=== PATIENT | female | born 1970 | race Caucasian/White ===

== ENCOUNTER 2017-06-28 05:56 | Inpatient (IN) | payer SELFPAY ==
[~2017-06-28] VITALS: Ht 165.1 cm; Wt 124.6 kg
[2017-06-28 07:45] LABS: CONDITION Y; Mean Corpuscular Hemoglobin 29.1 pg (28.0-32.0); Mean Corpuscular Hgb Conc. 33.7 g/dL (32.0-36.0); Mean Corpuscular Volume 86.5 fL (80.0-100.0); Mean Platelet Volume 8.1 fL (7.4-10.4); Platelet Count (auto) 474 10^3/uL (140-450); Red Cell Distribution Width 13.6 % (11.6-16.0); SUSPECT SEE PRINTOUT; White Blood Cell 19.4 10^3/uL (4.4-10.8)
[2017-06-28 07:49] LABS: Metamyelocytes % 0; Myelocytes % 0; Promyelocytes % 0; Reactive Lymphocytes 0
[2017-06-28] MEDS ORDERED: SODIUM CHLORIDE 0.9% 1,000 ML IVB ONE (07:59)
[2017-06-28] MEDS ORDERED: NALBUPHINE HCL 10 MG/1ml INJECTION IV ONE (08:00)
[2017-06-28] MEDS ORDERED: PROMETHAZINE HCL 25 MG/ML 1ML IV PRN (08:00)
[2017-06-28 08:01] LABS: Albumin 3.6 g/dL (3.4-5.0); Calcium 9.2 mg/dL (8.5-10.1); Potassium 3.5 mmol/L (3.5-5.1)
[2017-06-28 08:04] LABS: BUN/Creatinine Ratio 14.2; Bilirubin, Total 0.6 mg/dL (0.2-1.0); Total Protein 8.3 g/dL (6.4-8.2)
[2017-06-28 08:06] LABS: Lactic Acid w/Reflex 4.7 mmol/L (0.4-2.0)
[2017-06-28 08:10] LABS: REFLEX LACTIC ACID YES OR NO YES
[2017-06-28] MEDS ORDERED: GASTROGRAFIN 30 ML SOL ONE (08:50)
[2017-06-28] MEDS ORDERED: IOHEXOL 300 MG/ML 100ML BOTTLE IJ ONE (08:50)
[2017-06-28 08:53] LABS: Platelet Estimate Increased
[2017-06-28 08:54] LABS: Hematocrit 45.4 % (36.0-46.0); Hemoglobin 15.3 g/dL (12.2-16.2)
[2017-06-28 10:19] LABS: Urine Bilirubin Negative (Negative); Urine Blood Negative /uL (Negative); Urine Color Yellow (Yellow); Urine Mucus FEW (None Seen); Urine Nitrite Negative (Negative); Urine RBC 5 /hpf (0 - 4); Urine Squamous Epithelial Cell FEW /hpf (<5); Urine Urobilinogen Normal (Negative); Urine pH 7.5 (5.0-8.0)
[2017-06-28 10:22] LABS: Urine Glucose 1+ mg/dL (Normal); Urine Ketone 1+ (Negative)
[2017-06-28] MEDS ORDERED: SODIUM CHLORIDE 0.9% 1,000 ML IV ONE (11:11)
[2017-06-28] MEDS ORDERED: cefTRIAXone 1GM/50ML D5W 50 ML IV ONE (11:15)
[2017-06-28] MEDS ORDERED: metroNIDAZOLE 500MG/100ML 100 ML IV ONE (11:15)
[2017-06-28] MEDS ORDERED: SODIUM CHLORIDE 0.9% 3,000 ML IV ONE (11:15)
[2017-06-28] MEDS ORDERED: DEXTROSE (50%) 50ML SYRG IV PRN (13:15)
[2017-06-28] MEDS ORDERED: cloNIDine HCL 0.1 MG TAB PO PRN ×2 (13:15→20:30)
[2017-06-28] MEDS ORDERED: ACETAMINOPHEN 325 MG TAB PO PRN (13:30)
[2017-06-28] MEDS ORDERED: DOCUSATE SOD 100 MG CAP PO PRN (13:30)
[2017-06-28] MEDS: HYDROmorphone HCL 2 MG/ML VL IV PRN ×3 (13:44→23:09)
[2017-06-28] MEDS: ONDANSETRON HCL 4 MG/2 ML VIAL IV PRN ×2 (13:45→17:54)
[2017-06-28] MEDS: amLODIPine BESYLATE 5 MG TAB PO SCH (13:50)
[2017-06-28] MEDS: FAMOTIDINE 20 MG TAB PO SCH ×2 (13:50→23:08)
[2017-06-28] MEDS: SODIUM CHLORIDE 0.9% 1,000 ML IV SCH ×2 (15:09→22:35)
[2017-06-28] MEDS ORDERED: METF-370 PO (15:16)
[2017-06-28] MEDS ORDERED: OXYC30TA50 PO (15:16)
[2017-06-28] MEDS ORDERED: AML5T PO (15:16)
[2017-06-28 16:51] VITALS: BP 180/113
[2017-06-28] MEDS: InsuLIN REG 1unit/0.01ml Soln (100units/ml) SC SCH ×2 (17:00→23:09)
[2017-06-28] MEDS: ACCU-CHEK COMFORT CURVE STRIP VI SCH ×2 (17:25→22:00)
[2017-06-28] MEDS ORDERED: VANCOMYCIN PER PHARMACY 0 MG IV SCH (20:30)
[2017-06-28] MEDS ORDERED: VANCOMYCIN 1GM/250ML D5W 250 ML IV ONE (21:00)
[2017-06-28 22:00] VITALS: BP 152/101
[2017-06-28] MEDS: metroNIDAZOLE 500MG/100ML 100 ML IV SCH (23:07)
[2017-06-28] MEDS: TEMAZEPAM 15 MG CAP PO PRN (23:10)
[2017-06-29] MEDS: HYDROmorphone HCL 2 MG/ML VL IV PRN ×5 (04:05→21:34)
[2017-06-29] MEDS: ONDANSETRON HCL 4 MG/2 ML VIAL IV PRN ×5 (04:17→21:51)
[2017-06-29 05:00] VITALS: BP 164/98
[2017-06-29 05:47] LABS: Basophils # (auto) 0 uL; Basophils % (auto) 0.1 % (0.0-2.0); CONDITION Y; Eosinophils # (auto) 0.1 uL; Eosinophils % (auto) 0.8 % (0.0-7.0); Hematocrit 40.8 % (36.0-46.0); Hemoglobin 13.6 g/dL (12.2-16.2); Lymphocytes # (auto) 2.4 uL; Lymphocytes % (auto) 18.6 % (10.0-50.0); Mean Corpuscular Hemoglobin 28.5 pg (28.0-32.0); Mean Corpuscular Hgb Conc. 33.4 g/dL (32.0-36.0); Mean Corpuscular Volume 85.5 fL (80.0-100.0); Mean Platelet Volume 7.8 fL (7.4-10.4); Monocytes # (auto) 0.7 uL; Monocytes % (auto) 5.4 % (0.0-12.0); Neutrophils # (auto) 9.7 uL; Neutrophils % (auto) 75.1 % (37.0-80.0); Platelet Count (auto) 375 10^3/uL (140-450); Red Cell Distribution Width 14.2 % (11.6-16.0); White Blood Cell 12.9 10^3/uL (4.4-10.8)
[2017-06-29 06:12] LABS: Albumin 3.2 g/dL (3.4-5.0); Calcium 7.9 mg/dL (8.5-10.1); Potassium 3.3 mmol/L (3.5-5.1)
[2017-06-29 06:14] LABS: Bilirubin, Total 0.4 mg/dL (0.2-1.0)
[2017-06-29] MEDS: metroNIDAZOLE 500MG/100ML 100 ML IV SCH ×3 (06:38→21:51)
[2017-06-29] MEDS: ACCU-CHEK COMFORT CURVE STRIP VI SCH ×4 (06:39→22:03)
[2017-06-29] MEDS: SODIUM CHLORIDE 0.9% 1,000 ML IV SCH ×3 (06:39→23:35)
[2017-06-29] MEDS: InsuLIN REG 1unit/0.01ml Soln (100units/ml) SC SCH ×4 (06:39→22:00)
[2017-06-29] MEDS: cefTRIAXone 1GM/50ML D5W 50 ML IV SCH (08:24)
[2017-06-29 09:00] VITALS: BP 158/108
[2017-06-29] MEDS: DIPHENOXYLATE W/ATROPINE 2.5 MG TAB PO PRN ×2 (09:10→11:15)
[2017-06-29] MEDS ORDERED: POTASSIUM CHL 10 Meq TABLET PO ONE (09:30)
[2017-06-29] MEDS: MULTIPLE VITAMIN TAB PO SCH ×2 (09:38→09:48)
[2017-06-29] MEDS: FAMOTIDINE 20 MG TAB PO SCH ×3 (09:38→21:51)
[2017-06-29] MEDS: amLODIPine BESYLATE 5 MG TAB PO SCH ×2 (09:39→11:15)
[2017-06-29] MEDS: VANCOMYCIN 1,250 MG in D5W 5% 250 ML IV SCH ×2 (11:35→23:08)
[2017-06-29] MEDS: Boost Glucose Control 8 Ounces PO SCH ×2 (12:00→18:00)
[2017-06-29 13:00] VITALS: BP 164/106
[2017-06-29 17:00] VITALS: BP 159/97
[2017-06-29] MEDS: TEMAZEPAM 15 MG CAP PO PRN (21:51)
[2017-06-29 22:54] VITALS: BP 148/92
[2017-06-30] MEDS: HYDROmorphone HCL 2 MG/ML VL IV PRN ×4 (01:38→13:12)
[2017-06-30] MEDS: ONDANSETRON HCL 4 MG/2 ML VIAL IV PRN ×3 (01:44→13:12)
[2017-06-30] MEDS: DIPHENOXYLATE W/ATROPINE 2.5 MG TAB PO PRN (05:22)
[2017-06-30 05:31] VITALS: BP 124/95
[2017-06-30] MEDS: metroNIDAZOLE 500MG/100ML 100 ML IV SCH ×2 (06:10→14:00)
[2017-06-30] MEDS: InsuLIN REG 1unit/0.01ml Soln (100units/ml) SC SCH ×2 (06:19→11:30)
[2017-06-30] MEDS: ACCU-CHEK COMFORT CURVE STRIP VI SCH ×2 (06:19→11:30)
[2017-06-30] MEDS: SODIUM CHLORIDE 0.9% 1,000 ML IV SCH (07:57)
[2017-06-30] MEDS: Boost Glucose Control 8 Ounces PO SCH ×2 (08:00→12:00)
[2017-06-30 08:51] VITALS: BP 163/97
[2017-06-30] MEDS: MULTIPLE VITAMIN TAB PO SCH (10:00)
[2017-06-30] MEDS ORDERED: POTASSIUM CHLORIDE 20 MEQ, LIDOCAINE 1% (LOCAL ANESTH.) 2 ML in SODIUM CHL 0.9% 100 ML IV ONE (10:15)
[2017-06-30] MEDS: cefTRIAXone 1GM/50ML D5W 50 ML IV SCH (10:19)
[2017-06-30] MEDS: amLODIPine BESYLATE 5 MG TAB PO SCH (10:20)
[2017-06-30] MEDS: FAMOTIDINE 20 MG TAB PO SCH (10:20)
[2017-06-30 11:00] LABS: Basophils # (auto) 0 uL; Basophils % (auto) 0.1 % (0.0-2.0); CONDITION Y; Eosinophils # (auto) 0.1 uL; Eosinophils % (auto) 0.4 % (0.0-7.0); Hematocrit 40.5 % (36.0-46.0); Hemoglobin 13.9 g/dL (12.2-16.2); Lymphocytes # (auto) 1.7 uL; Lymphocytes % (auto) 11.6 % (10.0-50.0); Mean Corpuscular Hemoglobin 29.2 pg (28.0-32.0); Mean Corpuscular Hgb Conc. 34.3 g/dL (32.0-36.0); Mean Corpuscular Volume 85.3 fL (80.0-100.0); Mean Platelet Volume 7.6 fL (7.4-10.4); Monocytes # (auto) 0.6 uL; Monocytes % (auto) 3.9 % (0.0-12.0); Neutrophils # (auto) 12.6 uL; Platelet Count (auto) 345 10^3/uL (140-450); Red Cell Distribution Width 13.6 % (11.6-16.0); White Blood Cell 15.1 10^3/uL (4.4-10.8)
[2017-06-30] MEDS: VANCOMYCIN 1,250 MG in D5W 5% 250 ML IV SCH (11:00)
[2017-06-30 11:26] LABS: Albumin 3.3 g/dL (3.4-5.0); BUN/Creatinine Ratio 13.5; Bilirubin, Total 0.4 mg/dL (0.2-1.0); Calcium 8.4 mg/dL (8.5-10.1); Potassium 3.1 mmol/L (3.5-5.1); Total Protein 7.2 g/dL (6.4-8.2)
[2017-06-30 11:45] VITALS: BP 150/58
== END 2017-06-30 16:05 | disposition left against medical advice (07) | DRG 872 ==
LOC: ER 06:02 → EDSEX 06:02 → OVERFLOW 06:03 → EAST 14:32 → CENTRAL 14:50
PROVIDERS: ADMIT Internal Medicine; ATTEND Internal Medicine
DX: A41.9 Sepsis, unspecified organism (principal); E44.0 Moderate protein-calorie malnutrition; N39.0 Urinary tract infection, site not specified; E10.21 Type 1 diabetes mellitus with diabetic nephropathy; E10.22 Type 1 diabetes mellitus with diabetic chronic kidney disease; E66.01 Morbid (severe) obesity due to excess calories; E86.0 Dehydration; I12.9 Hypertensive chronic kidney disease with stage 1 through stage 4 chronic kidney disease, or unspecified chronic kidney disease; M79.7 Fibromyalgia; K52.9 Noninfective gastroenteritis and colitis, unspecified; N18.2 Chronic kidney disease, stage 2 (mild); Z79.4 Long term (current) use of insulin; Z83.3 Family history of diabetes mellitus; K76.0 Fatty (change of) liver, not elsewhere classified; R16.0 Hepatomegaly, not elsewhere classified; Z88.5 Allergy status to narcotic agent; Z71.89 Other specified counseling; A05.9 Bacterial foodborne intoxication, unspecified; Z53.21 Procedure and treatment not carried out due to patient leaving prior to being seen by health care provider
CPT/HCPCS: 36415; 71020; 74177; 80053; 80307; 81001; 82150; 82962; 83036; 83605; 83690; 83735; 84443; 84702; 85007; 85025; 85027; 87040; 87045; 87086; 87088; 87186; 87493; 87899; 93005; 96361; 96365; 96368; 96375; J0696; J1815; J2001; J2405; J3490; J7060

== ENCOUNTER 2017-07-01 13:51 | Inpatient (IN) | payer SELFPAY ==
[~2017-07-01] VITALS: Ht 162.6 cm; Wt 123.2 kg
[~2017-07-01 13:51] MED LIST: AML5T PO; METF-370 PO; OXYC30TA50 PO
[2017-07-01 15:15] LABS: Albumin 3.8 g/dL (3.4-5.0); BUN/Creatinine Ratio 17.3; Bilirubin, Total 0.9 mg/dL (0.2-1.0); Calcium 9.3 mg/dL (8.5-10.1); Potassium 3.2 mmol/L (3.5-5.1); Total Protein 8.6 g/dL (6.4-8.2)
[2017-07-01] MEDS ORDERED: SODIUM CHLORIDE 0.9% 1,000 ML IV ONE (19:11)
[2017-07-01] MEDS ORDERED: ONDANSETRON HCL 4 MG/2 ML VIAL IV ONE (19:15)
[2017-07-01 19:51] LABS: Basophils # (auto) 0 uL; Basophils % (auto) 0.2 % (0.0-2.0); CONDITION Y; Eosinophils # (auto) 0 uL; Eosinophils % (auto) 0.2 % (0.0-7.0); Hematocrit 46.3 % (36.0-46.0); Hemoglobin 15.4 g/dL (12.2-16.2); Lymphocytes # (auto) 2.8 uL; Mean Corpuscular Hemoglobin 28.7 pg (28.0-32.0); Mean Corpuscular Hgb Conc. 33.3 g/dL (32.0-36.0); Mean Corpuscular Volume 86.2 fL (80.0-100.0); Mean Platelet Volume 8.5 fL (7.4-10.4); Monocytes # (auto) 0.8 uL; Monocytes % (auto) 3.9 % (0.0-12.0); Neutrophils # (auto) 16.3 uL; Neutrophils % (auto) 81.7 % (37.0-80.0); Platelet Count (auto) 484 10^3/uL (140-450); Red Cell Distribution Width 13.3 % (11.6-16.0); White Blood Cell 19.9 10^3/uL (4.4-10.8)
[2017-07-01] MEDS ORDERED: HYDROmorphone HCL 2 MG/ML VL IV ONE (20:00)
[2017-07-01 21:20] LABS: Urine Bilirubin Negative (Negative); Urine Blood TRACE /uL (Negative); Urine Color Yellow (Yellow); Urine Glucose Normal (Normal); Urine Ketone TRACE (Negative); Urine Mucus MODERATE (None Seen); Urine Nitrite Negative (Negative); Urine RBC 7 /hpf (0 - 4); Urine Squamous Epithelial Cell MOD /hpf (<5); Urine Urobilinogen Normal (Negative)
[2017-07-01] MEDS ORDERED: cefTRIAXone 1GM/50ML D5W 50 ML IV ONE (22:00)
[2017-07-01] MEDS ORDERED: LEVOFLOXACIN 500MG 100 ML IV ONE (23:30)
[2017-07-01] MEDS ORDERED: metroNIDAZOLE 500MG/100ML 100 ML IV ONE (23:30)
[2017-07-01] MEDS ORDERED: ACETAMINOPHEN 325 MG TAB PO PRN (23:30)
[2017-07-01] MEDS ORDERED: PANTOPRAZOLE SODIUM 40 MG/10 ML VIAL IV ONE (23:30)
[2017-07-01] MEDS ORDERED: HYDROcodone-ACET 5/325MG TAB PO PRN (23:30)
[2017-07-01] MEDS ORDERED: POTASSIUM CHL 20 Meq TABLET PO ONE (23:30)
[2017-07-01] MEDS ORDERED: MORPHINE SULF INJ 2 MG/ML SYRINGE 1ML IV PRN (23:30)
[2017-07-01] MEDS ORDERED: TEMAZEPAM 15 MG CAP PO PRN (23:30)
[2017-07-02] MEDS: HYDROmorphone HCL 2 MG/ML VL IV PRN ×5 (00:28→20:12)
[2017-07-02] MEDS: ONDANSETRON HCL 4 MG/2 ML VIAL IV PRN ×6 (00:41→23:09)
[2017-07-02] MEDS: SODIUM CHLORIDE 0.9% 1,000 ML IV SCH ×3 (04:05→23:16)
[2017-07-02 05:00] VITALS: BP 156/98
[2017-07-02] MEDS: metroNIDAZOLE 500MG/100ML 100 ML IV SCH ×4 (05:55→23:17)
[2017-07-02 06:24] LABS: Basophils # (auto) 0 uL; Basophils % (auto) 0.2 % (0.0-2.0); CONDITION Y; Eosinophils # (auto) 0.1 uL; Eosinophils % (auto) 0.8 % (0.0-7.0); Hematocrit 42.8 % (36.0-46.0); Hemoglobin 14.2 g/dL (12.2-16.2); Lymphocytes # (auto) 2.9 uL; Mean Corpuscular Hemoglobin 28.8 pg (28.0-32.0); Mean Corpuscular Hgb Conc. 33.2 g/dL (32.0-36.0); Mean Corpuscular Volume 86.6 fL (80.0-100.0); Monocytes # (auto) 1.1 uL; Monocytes % (auto) 6.4 % (0.0-12.0); Neutrophils # (auto) 13.1 uL; Neutrophils % (auto) 75.6 % (37.0-80.0); Platelet Count (auto) 405 10^3/uL (140-450); Red Cell Distribution Width 13.6 % (11.6-16.0); White Blood Cell 17.3 10^3/uL (4.4-10.8)
[2017-07-02 08:36] LABS: Albumin 3.3 g/dL (3.4-5.0); BUN/Creatinine Ratio 21.6; Bilirubin, Total 0.6 mg/dL (0.2-1.0); Calcium 8.3 mg/dL (8.5-10.1); Total Protein 7.6 g/dL (6.4-8.2)
[2017-07-02 08:38] LABS: Potassium 2.9 mmol/L (3.5-5.1)
[2017-07-02 09:00] VITALS: BP 150/96
[2017-07-02] MEDS ORDERED: PANTOPRAZOLE SODIUM 40 MG/10 ML VIAL IV SCH (10:00)
[2017-07-02] MEDS: ENOXAPARIN SOD 40 MG/0.4 ML SYRINGE SC SCH (10:01)
[2017-07-02] MEDS: amLODIPine BESYLATE 5 MG TAB PO SCH (10:01)
[2017-07-02] MEDS ORDERED: DEXTROSE (50%) 50ML SYRG IV PRN (12:00)
[2017-07-02] MEDS: POTASSIUM CHL 20MEQ/100ML 100 ML IV SCH ×2 (12:29→14:54)
[2017-07-02 13:00] VITALS: BP 145/100
[2017-07-02] MEDS ORDERED: cefTRIAXone 1GM/50ML D5W 50 ML IV ONE (15:30)
[2017-07-02 16:56] VITALS: BP 145/94
[2017-07-02] MEDS: InsuLIN REG 1unit/0.01ml Soln (100units/ml) SC SCH ×2 (17:00→22:59)
[2017-07-02] MEDS: ACCU-CHEK COMFORT CURVE STRIP VI SCH ×2 (18:31→22:00)
[2017-07-02 18:47] LABS: Urine Bilirubin Negative (Negative); Urine Blood Negative /uL (Negative); Urine Color Yellow (Yellow); Urine Glucose Normal (Normal); Urine Ketone Negative (Negative); Urine Nitrite Negative (Negative); Urine RBC 1 /hpf (0 - 4); Urine Squamous Epithelial Cell FEW /hpf (<5); Urine Urobilinogen Normal (Negative); Urine pH 6.5 (5.0-8.0)
[2017-07-02] MEDS ORDERED: LEVOFLOXACIN 500MG 100 ML IV SCH (21:00)
[2017-07-02 22:00] VITALS: BP 150/79
[2017-07-02] MEDS: PANTOPRAZOLE 40 MG TAB PO SCH (22:00)
[2017-07-03] MEDS: HYDROmorphone HCL 2 MG/ML VL IV PRN ×3 (00:24→08:18)
[2017-07-03] MEDS: ONDANSETRON HCL 4 MG/2 ML VIAL IV PRN ×2 (04:38→08:18)
[2017-07-03 05:00] VITALS: BP 154/106
[2017-07-03 05:48] LABS: Basophils # (auto) 0 uL; Basophils % (auto) 0.3 % (0.0-2.0); CONDITION Y; Eosinophils # (auto) 0.2 uL; Eosinophils % (auto) 1.3 % (0.0-7.0); Lymphocytes % (auto) 17.9 % (10.0-50.0); Mean Corpuscular Volume 85.4 fL (80.0-100.0); Mean Platelet Volume 7.9 fL (7.4-10.4); Monocytes % (auto) 5.8 % (0.0-12.0); Neutrophils # (auto) 12.6 uL; Neutrophils % (auto) 74.7 % (37.0-80.0); Platelet Count (auto) 425 10^3/uL (140-450); Red Cell Distribution Width 13.6 % (11.6-16.0); White Blood Cell 16.8 10^3/uL (4.4-10.8)
[2017-07-03] MEDS: SODIUM CHLORIDE 0.9% 1,000 ML IV SCH (05:56)
[2017-07-03 06:00] LABS: INR 0.94 (0.9-1.15); Partial Thromboplastin Time 24.8 sec (22.64-33.71); Prothrombin Time 10.2 sec (9.37-12.3)
[2017-07-03] MEDS: metroNIDAZOLE 500MG/100ML 100 ML IV SCH (06:00)
[2017-07-03 06:11] LABS: Albumin 3.5 g/dL (3.4-5.0); Calcium 8.6 mg/dL (8.5-10.1); Potassium 3.1 mmol/L (3.5-5.1)
[2017-07-03 06:15] LABS: BUN/Creatinine Ratio 12.5; Bilirubin, Total 0.5 mg/dL (0.2-1.0); Total Protein 7.4 g/dL (6.4-8.2)
[2017-07-03] MEDS: InsuLIN REG 1unit/0.01ml Soln (100units/ml) SC SCH (06:57)
[2017-07-03] MEDS: ACCU-CHEK COMFORT CURVE STRIP VI SCH (06:57)
[2017-07-03] MEDS ORDERED: MIDAZOLAM HCL 5 MG/ML-1ML VIAL ONE (08:23)
[2017-07-03] MEDS ORDERED: LIDOCAINE VISCOUS 2% 15ML UD ONE (08:23)
[2017-07-03] MEDS ORDERED: SODIUM CHLORIDE LOCK 0 ML ONE (08:23)
[2017-07-03] MEDS ORDERED: diphenhdrAMINE HCL 50 MG/1 ML VL ONE (08:23)
[2017-07-03] MEDS ORDERED: fentaNYL CITRATE 100 MCG/2 ML VL ONE (08:24)
[2017-07-03 08:55] VITALS: BP 145/95
[2017-07-03] MEDS ORDERED: cefTRIAXone 1GM/50ML D5W 50 ML IV SCH (09:00)
[2017-07-03] MEDS: ENOXAPARIN SOD 40 MG/0.4 ML SYRINGE SC SCH (10:00)
[2017-07-03] MEDS: amLODIPine BESYLATE 5 MG TAB PO SCH (10:00)
[2017-07-03] MEDS: PANTOPRAZOLE 40 MG TAB PO SCH (10:00)
[2017-07-03 11:09] VITALS: BP 150/69
== END 2017-07-03 11:30 | disposition home or self-care (01) | DRG 392 ==
LOC: EDBD 13:51 → ER 13:51 → TELE 13:52 → EAST 23:38
PROVIDERS: ADMIT Nurse Practitioner; ATTEND Family Medicine
DX: R10.9 Unspecified abdominal pain (principal); N39.0 Urinary tract infection, site not specified; F11.20 Opioid dependence, uncomplicated; Z68.42 Body mass index [BMI] 45.0-49.9, adult; E86.0 Dehydration; E66.01 Morbid (severe) obesity due to excess calories; E11.65 Type 2 diabetes mellitus with hyperglycemia; K42.9 Umbilical hernia without obstruction or gangrene; K76.0 Fatty (change of) liver, not elsewhere classified; E87.6 Hypokalemia; I10 Essential (primary) hypertension; K52.9 Noninfective gastroenteritis and colitis, unspecified; Z80.9 Family history of malignant neoplasm, unspecified; Z84.89 Family history of other specified conditions; Z83.3 Family history of diabetes mellitus; Z82.49 Family history of ischemic heart disease and other diseases of the circulatory system; Z88.5 Allergy status to narcotic agent; Z88.0 Allergy status to penicillin; Z88.8 Allergy status to other drugs, medicaments and biological substances; Z72.0 Tobacco use
CPT/HCPCS: 36415; 74176; 80053; 80307; 81001; 82962; 83690; 84702; 85025; 85610; 85730; 87040; 87045; 87081; 87899; 96361; 96365; 96375; C9113; J0696; J1815; J1956; J2250; J2405; J3480; J3490